=== PATIENT | female | born 1980 | race Caucasian/White ===

== ENCOUNTER 2020-08-30 11:46 | Emergency (ER) | payer MEDICAID ==
[~2020-08-30] VITALS: Ht 165.1 cm; Wt 84.8 kg
[2020-08-30] MEDS ORDERED: NEOMY/BACITRA/POLYMYXIN B OINT UD PACKET TP ONE (12:15)
[2020-08-30] MEDS ORDERED: TDAP DIPH,PERTUSS,TET VAC/PF 0.5 ML DISP.SYRIN IM ONE ×2 (12:15→12:49)
[2020-08-30] MEDS ORDERED: HYDROCODONE/APAP 5-325MG TABLET PO ONE (12:15)
[2020-08-30] MEDS ORDERED: HYDROCODONE/APAP 5-325MG TABLET ONE (12:17)
--- NOTE | 2020-08-30 12:25 | NUR ---
Pt is in room #2b. Dr Cabrera evaluated the pt.
--- NOTE | 2020-08-30 13:30 | NUR ---
PT WAS D/C'd TO HOME. D/C INSTRUCTIONS GIVEN TO THE PT BY DR HERNANDEZ.
[2020-08-30 13:32] VITALS: BP 138/71
== END 2020-08-30 13:33 | disposition home or self-care (01) ==
LOC: ER 11:49
DX: S06.0X0A Concussion without loss of consciousness, initial encounter (principal); S01.01XA Laceration without foreign body of scalp, initial encounter; W20.8XXA Other cause of strike by thrown, projected or falling object, initial encounter; Y93.F9 Activity, other caregiving; Y92.89 Other specified places as the place of occurrence of the external cause; Y99.8 Other external cause status; Z88.1 Allergy status to other antibiotic agents
CPT/HCPCS: 70450; 90715; A4217; A4663

== ENCOUNTER → 2021-11-01 | Emergency (ER) | payer SELFPAY ==
[~2021-11-01] VITALS: Ht 165.1 cm; Wt 66.7 kg
[~2021-11-01] MED LIST: IBUP-1955 PO
--- NOTE | 2021-11-01 22:01 | NUR ---
CALLED FOR TRIAGE AND BED PLACEMENT, NO RESPONSE X 3
== END | disposition left against medical advice (07) ==
LOC: ER 17:47
DX: Z53.21 Procedure and treatment not carried out due to patient leaving prior to being seen by health care provider (principal)

== ENCOUNTER → 2021-11-01 | Emergency (ER) | payer SELFPAY | END | disposition left against medical advice (07) | LOC: ER 22:14 | DX: Z53.21 Procedure and treatment not carried out due to patient leaving prior to being seen by health care provider (principal) ==

== ENCOUNTER 2021-11-04 09:19 | Emergency (ER) | payer MEDICAID ==
[~2021-11-04] VITALS: Ht 165.1 cm; Wt 68.0 kg
--- NOTE | 2021-11-04 09:53 | NUR ---
at bedside for evaluation.
[2021-11-04] MEDS ORDERED: KETOROLAC TROMETHAMINE 60 MG INJ IM ONE ×2 (10:15→10:27)
--- NOTE | 2021-11-04 10:35 | NUR ---
Urine sent to lab.
[2021-11-04 10:39] LABS: *URINE HCG, QUAL NEG (NEGATIVE)
[2021-11-04] MEDS ORDERED: IBUP-1955 PO (11:01)
--- NOTE | 2021-11-04 11:10 | NUR ---
Patient discharged to home in stable condition. Written and verbal after care instructions given. Patient verbalizes understanding of instructions. Stressed follow up or return to ER for worsening s/s.
[2021-11-04 11:17] VITALS: BP 106/71
== END 2021-11-04 11:18 | disposition home or self-care (01) ==
LOC: ER 09:19
DX: M25.512 Pain in left shoulder (principal); M79.602 Pain in left arm; R94.31 Abnormal electrocardiogram [ECG] [EKG]
CPT/HCPCS: 99285; 84703; 93005; 73030; 96372; J1885; A4663